=== PATIENT | female | born 1990 | race Caucasian/White ===

== ENCOUNTER 2023-09-29 13:51 | Outpatient (CLI) | payer BC, SELFPAY | END 2023-09-29 13:52 | disposition home or self-care (01) | PROVIDERS: PCP Family Medicine; Visit Provider Physician Assistant | DX: Z01.812 Encounter for preprocedural laboratory examination (principal); Z15.09 Genetic susceptibility to other malignant neoplasm; Z12.4 Encounter for screening for malignant neoplasm of cervix | CPT/HCPCS: 87086 ==

== ENCOUNTER 2023-12-02 17:28 | Outpatient (CLI) | payer BC, SELFPAY | END 2023-12-02 17:29 | disposition home or self-care (01) | PROVIDERS: PCP Family Medicine | DX: R52 Pain, unspecified (principal); Z15.09 Genetic susceptibility to other malignant neoplasm | CPT/HCPCS: 86140; 86618 ==

== ENCOUNTER 2023-12-14 08:28 | Outpatient (CLI) | payer BC, SELFPAY | END 2023-12-14 08:29 | disposition home or self-care (01) | PROVIDERS: PCP Emergency Medicine; Visit Provider Emergency Medicine | DX: Z13.220 Encounter for screening for lipoid disorders (principal); Z15.09 Genetic susceptibility to other malignant neoplasm | CPT/HCPCS: 80061; 86304 ==

== ENCOUNTER 2024-10-16 08:55 | Outpatient (CLI) | payer BC, SELFPAY | END 2024-10-16 08:56 | disposition home or self-care (01) | PROVIDERS: Visit Provider Physician Assistant | DX: Z00.00 Encounter for general adult medical examination without abnormal findings (principal); Z13.9 Encounter for screening, unspecified | CPT/HCPCS: 80061; 87086 ==

== ENCOUNTER 2024-11-12 09:15 | Outpatient (CLI) | payer BC, SELFPAY ==
[2024-11-14 02:32] LABS: HPV Source Cervix
[2024-11-15 08:14] LABS: Pap Test Digital Imaging Done
== END 2024-11-12 09:16 | disposition home or self-care (01) ==
PROVIDERS: Visit Provider Physician Assistant
DX: Z12.4 Encounter for screening for malignant neoplasm of cervix (principal); Z15.04 Genetic susceptibility to malignant neoplasm of endometrium
CPT/HCPCS: 87624; 87625; 88141; 88142; 88175

== ENCOUNTER 2024-11-23 07:05 | Outpatient (CLI) | payer BC, SELFPAY ==
--- NOTE | 2024-11-23 08:27 | P.ANES_ITS ---
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
--- NOTE | 2024-11-23 08:27 | W.ANESCHARGE ---
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
== END 2024-11-23 07:06 | disposition home or self-care (01) ==
LOC: OP CLINIC 07:06
PROVIDERS: Visit Provider Internal Medicine Gastroenterology
DX: Z85.038 Personal history of other malignant neoplasm of large intestine (principal); Z15.060 Genetic susceptibility to colorectal cancer; D12.0 Benign neoplasm of cecum; D12.1 Benign neoplasm of appendix; Z86.0100 Personal history of colon polyps, unspecified
CPT/HCPCS: 00811; 45380; 88305; J2704